=== PATIENT | female | born 1960 | race Caucasian/White ===

== ENCOUNTER 2018-11-03 14:04 | Day surgery (SDC) | payer OTHER ==
[~2018-11-03] VITALS: Ht 162.6 cm; Wt 56.4 kg
[~2018-11-03 14:04] MED LIST: ALBU90OI; Aldactone25 MG PO; IBUP800 PO; Norco 10-325 T1 EACH PO
--- NOTE | 2018-11-03 18:10 | NUR ---
11/03/18 181 Kristel Calvin VSGauri IN SDU. VITALS STRIP LOST.
== END 2018-11-03 17:35 | disposition home or self-care (01) ==
LOC: ORSCSDS 14:04
PROVIDERS: Ophthalmology
PROC: 08RK3JZ Replacement of Left Lens with Synthetic Substitute, Percutaneous Approach (ICD-10-PCS; principal; 2018-11-03 15:30)
DX: H25.12 Age-related nuclear cataract, left eye (principal); I10 Essential (primary) hypertension; J44.9 Chronic obstructive pulmonary disease, unspecified; F17.210 Nicotine dependence, cigarettes, uncomplicated; Z79.899 Other long term (current) drug therapy
CPT/HCPCS: J2250; J3010; J7120; V2632

== ENCOUNTER 2019-03-01 09:01 | Day surgery (SDC) | payer OTHER ==
[~2019-03-01] VITALS: Ht 162.6 cm; Wt 56.0 kg
--- NOTE | 2019-03-01 11:22 | NUR ---
03/01/19 1122 Ayala Mari 10ML NORMAL SALINE USED TO ELEVATE TRANSVERSE COLON POLYP
== END 2019-03-01 11:51 | disposition home or self-care (01) ==
LOC: ORSCSDS 09:01
PROVIDERS: Internal Medicine Gastroenterology
PROC: 0DBL8ZX Excision of Transverse Colon, Via Natural or Artificial Opening Endoscopic, Diagnostic (ICD-10-PCS; principal; 2019-03-01 10:15)
PROC: 0DBN8ZX Excision of Sigmoid Colon, Via Natural or Artificial Opening Endoscopic, Diagnostic (ICD-10-PCS; principal; 2019-03-01 10:15)
PROC: 0DBP8ZX Excision of Rectum, Via Natural or Artificial Opening Endoscopic, Diagnostic (ICD-10-PCS; principal; 2019-03-01 10:15)
DX: Z12.11 Encounter for screening for malignant neoplasm of colon (principal); D12.3 Benign neoplasm of transverse colon; D12.5 Benign neoplasm of sigmoid colon; D12.8 Benign neoplasm of rectum; K57.30 Diverticulosis of large intestine without perforation or abscess without bleeding; K64.8 Other hemorrhoids; J44.9 Chronic obstructive pulmonary disease, unspecified; I10 Essential (primary) hypertension; Z79.899 Other long term (current) drug therapy; F17.210 Nicotine dependence, cigarettes, uncomplicated
CPT/HCPCS: 88305; J2704; J7120

== ENCOUNTER 2022-02-19 12:50 | Day surgery (SDC) | payer OTHER ==
[~2022-02-19] VITALS: Ht 162.6 cm; Wt 63.1 kg
[~2022-02-19 12:50] MED LIST changes: +CHANTIX1 MG PO; +Prinivil10 MG PO
[2022-02-19] MEDS ORDERED: LOSA50 (13:44)
== END 2022-02-19 16:11 | disposition home or self-care (01) ==
LOC: ORSCSDS 12:50
PROVIDERS: Student in an Organized Health Care Education/Training Program
PROC: 0DBK8ZX Excision of Ascending Colon, Via Natural or Artificial Opening Endoscopic, Diagnostic (ICD-10-PCS; principal; 2022-02-19 14:00)
PROC: 0DBN8ZX Excision of Sigmoid Colon, Via Natural or Artificial Opening Endoscopic, Diagnostic (ICD-10-PCS; principal; 2022-02-19 14:00)
PROC: 0DBL8ZX Excision of Transverse Colon, Via Natural or Artificial Opening Endoscopic, Diagnostic (ICD-10-PCS; principal; 2022-02-19 14:00)
PROC: 0DBP8ZX Excision of Rectum, Via Natural or Artificial Opening Endoscopic, Diagnostic (ICD-10-PCS; principal; 2022-02-19 14:00)
DX: Z12.11 Encounter for screening for malignant neoplasm of colon (principal); Z86.010 Personal history of colon polyps; D12.2 Benign neoplasm of ascending colon; D12.3 Benign neoplasm of transverse colon; K63.5 Polyp of colon; K62.1 Rectal polyp; J44.9 Chronic obstructive pulmonary disease, unspecified; I25.10 Atherosclerotic heart disease of native coronary artery without angina pectoris; I10 Essential (primary) hypertension; Z79.899 Other long term (current) drug therapy
CPT/HCPCS: 88305; J2704; J7120

== ENCOUNTER 2023-09-29 06:59 | Day surgery (SDC) | payer OTHER ==
[~2023-09-29] VITALS: Ht 162.6 cm; Wt 60.8 kg
[~2023-09-29 06:59] MED LIST changes: +LOSA50
[2023-09-29] MEDS ORDERED: Ventolin/Prove6.7 GM INH (07:29)
--- NOTE | 2023-09-29 07:48 | NUR ---
09/29/23 0748 Diana Diamond CALL LIGHT WITHIN REACH.BED IN LOWEST POSITION. HAS PERSONAL PHONE.NO QUESTIONS OR CONCERNS
--- NOTE | 2023-09-29 08:52 | NUR ---
09/29/23 0852 VIV CARTAGENA O2 REMOVED AFTER PT WOKE UP. 100% ON RA
--- NOTE | 2023-09-29 09:30 | NUR ---
09/29/23 7759 VIV CARTAGENA PT UP TO THE BR. PT CLEANED UP AND CHANGED INTO CLOTHES IN BATHROOM. AMBULATING WELL.
[2023-09-29 09:31] VITALS: BP 144/93
== END 2023-09-29 09:41 | disposition home or self-care (01) ==
LOC: ORSCSDS 06:59
PROVIDERS: Otolaryngology
PROC: 0BJ08ZZ Inspection of Tracheobronchial Tree, Via Natural or Artificial Opening Endoscopic (ICD-10-PCS; principal; 2023-09-29 08:15)
PROC: 0CJS8ZZ Inspection of Larynx, Via Natural or Artificial Opening Endoscopic (ICD-10-PCS; principal; 2023-09-29 08:15)
DX: R93.89 Abnormal findings on diagnostic imaging of other specified body structures (principal); I10 Essential (primary) hypertension; J44.9 Chronic obstructive pulmonary disease, unspecified; F17.210 Nicotine dependence, cigarettes, uncomplicated; Z79.899 Other long term (current) drug therapy
CPT/HCPCS: A9270; J0171; J1100; J2250; J2405; J2704; J3010; J7120

== ENCOUNTER 2024-04-12 08:59 | Day surgery (SDC) | payer OTHER ==
[2024-04-12] VITALS (11 sets, daily range): BP systolic 120–149; BP diastolic 84–99
[~2024-04-12] VITALS: Ht 162.6 cm; Wt 53.2 kg
[~2024-04-12 08:59] MED LIST changes: +FentaNYL Citrate 50 MCG/ML 2 ML Injection ONE; +IBUP200 PO; +Lactated Ringer's 1,000 ML IV SCH; +Ventolin/Prove6.7 GM INH; +XARELTO15 MG PO; +propofoL 20 ML IV ONE
[2024-04-12] MEDS ORDERED: Bupivacaine 0.5% HCl 5 MG/ML 30MLVIAL ONE (09:06)
[2024-04-12] MEDS ORDERED: Lidocaine HCl 1% 30 ML SDV ONE (09:09)
[2024-04-12] MEDS ORDERED: Ipratropium/Albuterol SulF 2.5-0.5MG/3 ML Amp INH ONE (09:40)
[2024-04-12] MEDS ORDERED: Midazolam HCl 1MG / ML 2ML Vial IV ONE (09:40)
[2024-04-12] MEDS ORDERED: CeFAZolin Sodium 2,000 MG in NS 100 ML IV SCH (09:50)
[2024-04-12] MEDS ORDERED: FentaNYL Citrate 50 MCG/ML 2 ML Injection IV PRN ×3 (10:10→10:15)
[2024-04-12] MEDS ORDERED: Ondansetron HCl 2 MG / ML 2ML Vial IV PRN (10:15)
[2024-04-12] MEDS ORDERED: Dexamethasone Sod Phos 10 MG/ML 1ML VIAL ONE (10:18)
[2024-04-12] MEDS ORDERED: Ondansetron HCl 2 MG / ML 2ML Vial ONE (10:18)
[2024-04-12] MEDS ORDERED: Phenylephrine HCl 100 MCG/ML-NS 10MLSYR (1MG/10ML) ONE (10:21)
[2024-04-12] MEDS ORDERED: ePHEDrine Sulfate 50 MG/ML 1ML Injection ONE (10:31)
[2024-04-12] MEDS ORDERED: Labetalol HCL 5 MG/ML 4ML Injection (Single Dose) ONE (11:01)
[2024-04-12] MEDS ORDERED: HYDROcodone 5-APAP 325 TAB PO PRN (11:25)
--- NOTE | 2024-04-12 11:46 | NUR ---
MEDI[PORT PLACEMENT CONFIRMED BY DR ESPINOSA.
--- NOTE | 2024-04-12 12:37 | NUR ---
Patient up to Ambulate independently. Gait steady. Discharge instructions reviewed with patient. Patient verbalizes understanding. Copy given to patient to take home, [facility]. Patient States Post-Procedure ride home has been arranged. Discharged via wheelchair to private car for ride home. PT INCISION C/D/I. PT REPORTS PAIN TOLERABLE. REPORTS READY TO GO HOME. REPORTS HAVING ICE PACK AT HOME.
== END 2024-04-12 12:37 | disposition home or self-care (01) ==
LOC: ORSCMMR 08:59 → ORD 10:30 → ORSCMMR 10:30
PROVIDERS: Surgery
PROC: 0JH63WZ Insertion of Totally Implantable Vascular Access Device into Chest Subcutaneous Tissue and Fascia, Percutaneous Approach (ICD-10-PCS; principal; 2024-04-12 10:30)
DX: C25.1 Malignant neoplasm of body of pancreas (principal); I10 Essential (primary) hypertension; J44.9 Chronic obstructive pulmonary disease, unspecified; F17.210 Nicotine dependence, cigarettes, uncomplicated; Z79.899 Other long term (current) drug therapy; Z79.01 Long term (current) use of anticoagulants
CPT/HCPCS: 77001; A9270; C1788; J0690; J1100; J1642; J2250; J2371; J2405; J2704; J3010; J7120